=== PATIENT | female | born 1955 | race Caucasian/White ===

== ENCOUNTER 2018-11-25 11:53 | Inpatient (IN) ==
[2018-11-25 13:22] LABS: Basophils # 0.1 10*3/uL (0.0-0.2); Basophils % 0.5 % (0.0-0.8); Eosinophils % 0.1 % (0.00-10.9); Hemoglobin 15.1 GM/DL (12.0-16.0); Immature Granulocytes % 0.5 %; Immature Granulocytes Absolute 0.06 #; Lymphocytes % 16.2 % (21.3-54.2); Mean Corpuscular HGB Conc 32.1 GM/DL (32-36); Mean Corpuscular Hemoglobin 28 PG (27-34); Mean Corpuscular Volume 86.4 FL (87-102); Mean Platelet Volume 9.8 FL (9.6-12.0); Monocytes # 0.7 10*3/uL (0.11-0.8); Monocytes % 5.6 % (1.7-12.7); Neutrophils # 9.7 10*3/uL (1.4-7.4); Neutrophils % 77.1 % (38.7-73.9); Platelet Count 353 T/CUMM (130-400); Red Blood Count 5.44 MC/CUMM (3.8-5.5); Red Cell Distribution Width 12.3 % (9.3-17.3); White Blood Count 12.6 T/CUMM (4-12)
[2018-11-25 13:32] LABS: Apearance,Urine CLOUDY (Clear); Bacteria,Urine Occasional /HPF (Few); Bilirubin,Urine Negative (Negative); Blood, Urine Negative (Negative); Glucose,Urine (UA) >=500 mg/dL (Negative); Ketones,Urine 20 mg/dL (Negative); Nitrite,Urine Negative (Negative); Protein,Urine Negative; RBC,Urine <1 /HPF (0-4); Squamous Epithelial Cell,Urine Occasional /HPF (0-10); Urine Color Yellow (Yellow); Urine Specific Gravity 1.024 (1.001-1.035); Urine Urobilinogen < 2.0 EU/DL (0.2-1.0); WBC,Urine <1 /HPF (0-6)
[2018-11-25 13:57] LABS: Bilirubin,Total 0.5 MG/DL (0.2-1.0); Calcium 9.9 MG/DL (8.5-10.1); Osmolality,Calculated 280.4 MOS/KG (273-304); Total Protein 9.2 G/DL (6.4-8.3)
[2018-11-25 14:00] LABS: Barbiturates Screen,Urine Negative (Negative); Benzodiazepines Screen,Urine Negative (Negative); Cannabinoid Screen,Urine Negative (Negative); Opiate Screen,Urine Negative (Negative); Phencyclidine Screen,Urine Negative (Negative)
[2018-11-25] MEDS ORDERED: LABETALOL 20 MG/4 ML SYRINGE IV STA (14:27)
[2018-11-25] MEDS ORDERED: hydrALAZINE 20 MG/1 ML VIAL IV PRN (15:27)
[2018-11-25] MEDS ORDERED: DEXTROSE 50% 25 GM/50 ML SYRINGE IV PRN (15:31)
[2018-11-25] MEDS ORDERED: GLUCAGON 1 MG VIAL IM PRN (15:31)
[2018-11-25] MEDS ORDERED: MAGNESIUM SULF RIDER 4 GM in PREMIX 1 EACH IV PRN (15:31)
[2018-11-25] MEDS ORDERED: MAGNESIUM SULF RIDER 2 GM in PREMIX 1 EACH IV PRN (15:31)
[2018-11-25] MEDS ORDERED: POTASSIUM CHLORIDE RIDER 10 MEQ in PREMIX 1 EACH IV PRN (15:31)
[2018-11-25 15:46] LABS: Risk Ratio 5.73; VLDL CHOLESTEROL 24.2 MG/DL
[2018-11-25] MEDS ORDERED: ACETAMINOPHEN 500 MG TABLET PO STA (16:06)
[2018-11-25] MEDS ORDERED: ACETAMINOPHEN 500 MG TABLET ONE (16:08)
[2018-11-25] MEDS: HEPARIN 5,000 UNIT/1 ML VIAL SUBCUT SCH (18:43)
[2018-11-25] MEDS: INSULIN REGULAR 100 UNIT/ML SUBCUT SCH ×2 (18:44→20:55)
[2018-11-25] MEDS: cefTRIAXone 2,000 MG in SYRINGE 1 EACH IV SCH (18:44)
[2018-11-25] MEDS: metFORMIN 500 MG TABLET PO SCH (20:51)
[2018-11-25] MEDS: ATORVASTATIN 40 MG TABLET PO SCH (20:51)
[2018-11-25] MEDS ORDERED: INSULIN GLARGINE 100 UNIT/ML SUBCUT SCH (21:00)
[2018-11-26] MEDS: HEPARIN 5,000 UNIT/1 ML VIAL SUBCUT SCH ×3 (01:10→18:34)
[2018-11-26] MEDS ORDERED: MELATONIN 3 MG TABLET PO ONE (03:13)
[2018-11-26 05:04] LABS: Basophils # 0.1 10*3/uL (0.0-0.2); Basophils % 0.6 % (0.0-0.8); Eosinophils % 0.2 % (0.00-10.9); Hematocrit 45.4 VOL% (35.7-47.0); Hemoglobin 14.5 GM/DL (12.0-16.0); Immature Granulocytes % 0.7 %; Immature Granulocytes Absolute 0.07 #; Lymphocytes # 2.3 10*3/uL (1.4-4.0); Mean Corpuscular HGB Conc 31.9 GM/DL (32-36); Mean Corpuscular Hemoglobin 28 PG (27-34); Mean Corpuscular Volume 86.1 FL (87-102); Mean Platelet Volume 10.7 FL (9.6-12.0); Monocytes # 0.8 10*3/uL (0.11-0.8); Monocytes % 8.6 % (1.7-12.7); Neutrophils # 6.1 10*3/uL (1.4-7.4); Neutrophils % 64.9 % (38.7-73.9); Platelet Count 374 T/CUMM (130-400); Red Blood Count 5.27 MC/CUMM (3.8-5.5); Red Cell Distribution Width 12.3 % (9.3-17.3); White Blood Count 9.4 T/CUMM (4-12)
[2018-11-26 05:32] LABS: Albumin 3.5 G/DL (3.4-5.0); Bilirubin,Total 1.2 MG/DL (0.2-1.0); Calcium 9.6 MG/DL (8.5-10.1); Osmolality,Calculated 285.1 MOS/KG (273-304); Potassium 3.6 MMOL/L (3.5-5.1); Total Protein 8.4 G/DL (6.4-8.3)
[2018-11-26] MEDS ORDERED: predniSONE 5 MG TABLET PO SCH (09:00)
[2018-11-26] MEDS: LISINOPRIL 20 MG TABLET PO SCH (09:23)
[2018-11-26] MEDS: MECLIZINE 25 MG TABLET PO SCH ×3 (09:23→20:54)
[2018-11-26] MEDS: metFORMIN 500 MG TABLET PO SCH ×2 (09:23→20:54)
[2018-11-26] MEDS: ASPIRIN EC 81 MG TABLET PO SCH (09:23)
[2018-11-26] MEDS: sitaGLIPtin 100 MG TABLET PO SCH (09:23)
[2018-11-26] MEDS: INSULIN REGULAR 100 UNIT/ML SUBCUT SCH ×4 (09:24→20:56)
[2018-11-26] MEDS: INSULIN GLARGINE 100 UNIT/ML SUBCUT SCH ×3 (09:24→20:56)
[2018-11-26] MEDS: METOPROLOL SUCCINATE XL 25 MG TABLET PO SCH (12:21)
[2018-11-26] MEDS ORDERED: hydrALAZINE 20 MG/1 ML VIAL IV PRN (15:11)
[2018-11-26 15:26] LABS: ABG Base Excess 3.3 MMOL/L (-2.5-2.5); ABG HCO3 27.2 MMOL/L (20-26); ABG PCO2 35.5 MM HG (35-48); Pt O2 Delivery Device Room Air
[2018-11-26] MEDS: SODIUM CHLORIDE 0.9% 1,000 ML IV SCH (16:20)
[2018-11-26] MEDS: methylPREDNISolone SOD SUC 40 MG/1 ML VIAL IV SCH ×2 (16:23→20:57)
[2018-11-26] MEDS: FAMOTIDINE 20 MG/2 ML VIAL IV SCH (16:25)
[2018-11-26] MEDS: diphenhydrAMINE 50 MG/1 ML VIAL IV SCH ×2 (18:32→23:22)
[2018-11-26] MEDS: cefTRIAXone 2,000 MG in SYRINGE 1 EACH IV SCH (18:33)
[2018-11-26] MEDS ORDERED: LORazepam 2 MG/1 ML VIAL IV PRN (20:13)
[2018-11-26] MEDS: ATORVASTATIN 40 MG TABLET PO SCH (20:54)
[2018-11-27] MEDS: methylPREDNISolone SOD SUC 40 MG/1 ML VIAL IV SCH ×2 (03:04→10:56)
[2018-11-27] MEDS: FAMOTIDINE 20 MG/2 ML VIAL IV SCH ×2 (03:05→15:35)
[2018-11-27] MEDS: HEPARIN 5,000 UNIT/1 ML VIAL SUBCUT SCH ×2 (03:07→10:56)
[2018-11-27 05:06] LABS: Basophils % 0.2 % (0.0-0.8); Hematocrit 45.9 VOL% (35.7-47.0); Hemoglobin 14.4 GM/DL (12.0-16.0); Immature Granulocytes % 0.7 %; Immature Granulocytes Absolute 0.09 #; Lymphocytes # 1.4 10*3/uL (1.4-4.0); Lymphocytes % 11.1 % (21.3-54.2); Mean Corpuscular HGB Conc 31.4 GM/DL (32-36); Mean Corpuscular Hemoglobin 27 PG (27-34); Mean Corpuscular Volume 86.6 FL (87-102); Mean Platelet Volume 10.2 FL (9.6-12.0); Monocytes # 0.4 10*3/uL (0.11-0.8); Monocytes % 3.3 % (1.7-12.7); Neutrophils # 10.6 10*3/uL (1.4-7.4); Neutrophils % 84.7 % (38.7-73.9); Platelet Count 372 T/CUMM (130-400); Red Cell Distribution Width 12.2 % (9.3-17.3); White Blood Count 12.6 T/CUMM (4-12)
[2018-11-27 05:28] LABS: Albumin 3.2 G/DL (3.4-5.0); Bilirubin,Total 0.4 MG/DL (0.2-1.0); Calcium 9.2 MG/DL (8.5-10.1); Total Protein 7.9 G/DL (6.4-8.3)
[2018-11-27] MEDS: diphenhydrAMINE 50 MG/1 ML VIAL IV SCH ×3 (05:48→17:14)
[2018-11-27] MEDS: SODIUM CHLORIDE 0.9% 1,000 ML IV SCH ×2 (05:48→23:43)
[2018-11-27] MEDS: INSULIN REGULAR 100 UNIT/ML SUBCUT SCH ×4 (10:06→22:58)
[2018-11-27] MEDS: metFORMIN 500 MG TABLET PO SCH ×2 (10:06→21:27)
[2018-11-27] MEDS: sitaGLIPtin 100 MG TABLET PO SCH (10:06)
[2018-11-27] MEDS: MECLIZINE 25 MG TABLET PO SCH ×3 (10:07→21:27)
[2018-11-27] MEDS: ASPIRIN EC 81 MG TABLET PO SCH (10:51)
[2018-11-27] MEDS: INSULIN GLARGINE 100 UNIT/ML SUBCUT SCH ×2 (13:59→22:57)
[2018-11-27] MEDS: LISINOPRIL 20 MG TABLET PO SCH (14:07)
[2018-11-27] MEDS: METOPROLOL SUCCINATE XL 25 MG TABLET PO SCH (14:07)
[2018-11-27] MEDS: DIPYRIDAMOLE/ASPIRIN 200-25 MG CAPSULE PO SCH (21:27)
[2018-11-27] MEDS: ATORVASTATIN 40 MG TABLET PO SCH (21:27)
[2018-11-28] MEDS ORDERED: ONDANSETRON 4 MG/2 ML VIAL IV PRN (03:12)
[2018-11-28] MEDS ORDERED: MORPHINE 4 MG/1 ML VIAL IV PRN (03:13)
[2018-11-28] MEDS: diphenhydrAMINE 50 MG/1 ML VIAL IV SCH ×4 (03:17→17:04)
[2018-11-28] MEDS: FAMOTIDINE 20 MG/2 ML VIAL IV SCH ×2 (03:20→14:32)
[2018-11-28] MEDS: METOPROLOL SUCCINATE XL 25 MG TABLET PO SCH (08:51)
[2018-11-28] MEDS: metFORMIN 500 MG TABLET PO SCH ×2 (08:51→20:35)
[2018-11-28] MEDS: DIPYRIDAMOLE/ASPIRIN 200-25 MG CAPSULE PO SCH ×2 (08:51→20:35)
[2018-11-28] MEDS: LISINOPRIL 20 MG TABLET PO SCH (08:51)
[2018-11-28] MEDS: sitaGLIPtin 100 MG TABLET PO SCH (08:52)
[2018-11-28] MEDS: MECLIZINE 25 MG TABLET PO SCH ×3 (08:52→20:35)
[2018-11-28] MEDS: INSULIN REGULAR 100 UNIT/ML SUBCUT SCH ×4 (08:52→20:30)
[2018-11-28] MEDS: INSULIN GLARGINE 100 UNIT/ML SUBCUT SCH (09:13)
[2018-11-28] MEDS: ATORVASTATIN 40 MG TABLET PO SCH (20:35)
[2018-11-28] MEDS ORDERED: MELATONIN 3 MG TABLET PO SCH (21:00)
[2018-11-28] MEDS ORDERED: INSULIN GLARGINE 100 UNIT/ML SUBCUT SCH (21:00)
[2018-11-29] MEDS: diphenhydrAMINE 50 MG/1 ML VIAL IV SCH ×3 (00:09→11:11)
[2018-11-29] MEDS: SODIUM CHLORIDE 0.9% 1,000 ML IV SCH ×3 (03:25→15:29)
[2018-11-29] MEDS: FAMOTIDINE 20 MG/2 ML VIAL IV SCH ×2 (03:35→16:00)
[2018-11-29] MEDS: INSULIN REGULAR 100 UNIT/ML SUBCUT SCH ×3 (09:03→15:36)
[2018-11-29] MEDS: sitaGLIPtin 100 MG TABLET PO SCH (09:06)
[2018-11-29] MEDS: metFORMIN 500 MG TABLET PO SCH (09:06)
[2018-11-29] MEDS: DIPYRIDAMOLE/ASPIRIN 200-25 MG CAPSULE PO SCH (09:06)
[2018-11-29] MEDS: MECLIZINE 25 MG TABLET PO SCH ×2 (09:06→16:00)
[2018-11-29] MEDS: LISINOPRIL 20 MG TABLET PO SCH (09:06)
[2018-11-29] MEDS: METOPROLOL SUCCINATE XL 25 MG TABLET PO SCH (09:06)
[2018-11-29] MEDS ORDERED: SENNA 8.6 MG TABLET PO PRN (15:44)
[2018-11-29 15:52] VITALS: BP 132/86
[2018-11-29] MEDS ORDERED: POLYETHYLENE GLYCOL POWDER 17 GM PACK PO SCH (21:00)
[2018-11-29] MEDS ORDERED: DOCUSATE SODIUM 100 MG CAPSULE PO SCH (21:00)
[2018-11-30] MEDS ORDERED: POLYETHYLENE GLYCOL POWDER 17 GM PACK PO ONE (16:24)
== END 2018-11-29 16:35 | DRG 65 ==
LOC: N.ED 11:53 → N.EDINP 11:53 → SUATTDRO 16:30 → N.4E 16:54
PROVIDERS: ADMIT Nurse Practitioner; ATTEND Hospitalist